=== PATIENT | male | born 1995 | race Caucasian/White ===

== ENCOUNTER 2016-12-03 16:37 | Emergency (ER) | payer OTHER ==
[~2016-12-03] VITALS: Ht 188 cm; Wt 70.5 kg
[~2016-12-03 16:37] MED LIST: ATIVAN 0.50.5 MG/TAB PO; IMURAN 50MG TAB50 MG PO; LIALDA 1.2 GM1.2 GM PO; MILLIPRED5 MG PO; NORCO 325 MG-7.1 TAB PO; PREDNISONE 5MG5 MG PO; PREDNISONE10 MG PO; PRIL40 PO; SERTRALINE
[2016-12-03 16:39] VITALS: BP 129/84; TEMP 98.6
[2016-12-03] MEDS ORDERED: VISTARIL 2525 MG/CAP PO (17:56)
[2016-12-03 18:03] VITALS: PULSE 69
== END 2016-12-03 18:03 | disposition home or self-care (01) ==
LOC: COL.ER 16:37
DX: F41.9 Anxiety disorder, unspecified (principal)

== ENCOUNTER 2017-01-03 08:13 | Emergency (ER) | payer OTHER ==
[~2017-01-03] VITALS: Ht 188 cm; Wt 70.5 kg
[~2017-01-03 08:13] MED LIST changes: +VISTARIL 2525 MG/CAP PO
[2017-01-03 08:16] VITALS: BP 118/77; TEMP 97.3
[2017-01-03] MEDS ORDERED: LEXAPRO 10MG10 MG PO (08:18)
[2017-01-03 09:13] VITALS: PULSE 64
== END 2017-01-03 09:19 | disposition home or self-care (01) ==
LOC: COL.ER 08:13
DX: F41.9 Anxiety disorder, unspecified (principal)

== ENCOUNTER 2017-03-06 13:47 | Emergency (ER) | payer OTHER ==
[~2017-03-06] VITALS: Ht 188 cm; Wt 70.5 kg
[~2017-03-06 13:47] MED LIST changes: +LEXAPRO 10MG10 MG PO
[2017-03-06 13:49] VITALS: BP 131/89; PULSE 82; TEMP 98.5
[2017-03-06] MEDS ORDERED: AMOXICILLIN 50500 MG PO (14:23)
[2017-03-07] MEDS ORDERED: ZOFRAN 4MG T4 MG/TAB PO (23:23)
== END 2017-03-06 15:02 | disposition home or self-care (01) ==
LOC: COL.ER 13:47
DX: K08.89 Other specified disorders of teeth and supporting structures (principal)

== ENCOUNTER 2017-03-07 20:57 | Emergency (ER) | payer OTHER ==
[~2017-03-07] VITALS: Ht 188 cm; Wt 70.5 kg
[~2017-03-07 20:57] MED LIST changes: +AMOXICILLIN 50500 MG PO
[2017-03-07 21:06] VITALS: TEMP 97.6
[2017-03-07 22:07] LABS: BASO # 0.1 (0.0-0.2); BASO % 0.5 % (0.0-2.0); EOS # 0.2 (0.0-0.7); EOS % 2.3 % (0-4.0); GRAN # 6.4 (1.4-6.5); GRAN % 67.3 % (42.2-75.2); HEMATOCRIT 39.9 % (36.0-47.0); HEMOGLOBIN 13.8 g/dl (12.5-16.1); LYMPH % 20.6 % (20.0-51.0); MEAN CELL VOLUME 90 fl (80.0-95.0); MEAN CORPUSCULAR HEMOGLOBIN 31 pg (26.0-32.0); MEAN CORPUSCULAR HGB CONC 35 g/dl (33.0-37.0); MONO # 0.9 (0.1-0.6); MONO % 9.1 % (1.7-9.3); PLATELET COUNT 216 K/mm3 (130-400); RED BLOOD COUNT 4.43 M/mm3 (4.20-5.60); REDCELL DISTRIBUTION WIDTH-CV 12.9 % (11.5-14.5); WHITE BLOOD COUNT 9.6 K/mm3 (4.8-10.8)
[2017-03-07 22:19] LABS: ADJUSTED CALCIUM 8.9 mg/dL (8.4-10.2); ALANINE AMINOTRANSFERASE 30 U/L (21-72); ALBUMIN 4.1 gm/dL (3.5-5.0); ALKALINE PHOSPHATASE 92 U/L (50-136); ANION GAP 11 mmol/L (7-16); BILIRUBIN,TOTAL 0.6 mg/dL (0.0-1.0); BLOOD UREA NITROGEN 12 mg/dL (9-20); CARBON DIOXIDE 27 mmol/L (22-30); CHLORIDE 101 mmol/L (98-107); CREATININE, serum 0.92 mg/dL (0.66-1.25); GLUCOSE 87 mg/dL (74-106); LIPASE 57 U/L (23-300); POTASSIUM 3.8 mmol/L (3.4-5.0); SODIUM 139 mmol/L (137-145)
[2017-03-07 22:25] LABS: C-REACTIVE PROTEIN < 0.5 mg/dL (0.0-0.9)
[2017-03-07 22:33] LABS: ERYTHROCYTE SEDIMENTATION RATE 2 mm/hr (0-15)
[2017-03-07 23:03] LABS: PH 6 (5-8); SQUAMOUS EPITHELIAL None Seen /hpf; URINE APPEARANCE Clear; URINE BACTERIA None Seen /hpf; URINE BILIRUBIN Negative (NEGATIVE); URINE BLOOD Negative (NEGATIVE); URINE COLOR Yellow; URINE GLUCOSE Negative (NEGATIVE); URINE KETONE Trace (NEGATIVE); URINE RBC 0-2 /hpf; URINE UROBILINOGEN Negative (NEGATIVE); URINE WBC 0-2 /hpf
[2017-03-07] MEDS ORDERED: ZOFRAN 4MG T4 MG/TAB PO (23:23)
[2017-03-07 23:39] VITALS: BP 120/78; PULSE 82
== END 2017-03-07 23:41 | disposition home or self-care (01) ==
LOC: COL.ER 20:57
PROVIDERS: Family Medicine
DX: R11.2 Nausea with vomiting, unspecified (principal); R10.84 Generalized abdominal pain; R63.0 Anorexia; R19.7 Diarrhea, unspecified; K50.90 Crohn's disease, unspecified, without complications
CPT/HCPCS: C9113; J2405; J7030

== ENCOUNTER 2017-09-13 14:00 | Outpatient (RCR) | payer OTHER ==
[2017-08-02 16:25] LABS: HEMATOCRIT 44.2 % (36.0-47.0); HEMOGLOBIN 14.8 g/dl (12.5-16.1); MEAN CELL VOLUME 92 fl (80.0-95.0); MEAN CORPUSCULAR HEMOGLOBIN 31 pg (26.0-32.0); MEAN CORPUSCULAR HGB CONC 34 g/dl (33.0-37.0); MEAN PLATELET VOLUME 9.4 fl (7.4-10.4); PLATELET COUNT 261 K/mm3 (130-400); REDCELL DISTRIBUTION WIDTH-CV 13.3 % (11.5-14.5)
[2017-08-02 16:35] LABS: ALBUMIN 5.1 gm/dL (3.5-5.0); BILIRUBIN,TOTAL 0.6 mg/dL (0.0-1.0); CREATININE, serum 0.87 mg/dL (0.66-1.25); POTASSIUM 4.1 mmol/L (3.4-5.0); TOTAL PROTEIN 8.5 gm/dL (6.4-8.2)
[2017-08-02 17:17] VITALS: BP 119/56; PULSE 82; TEMP 98.7
[2017-08-16 15:50] LABS: HEMATOCRIT 42.5 % (36.0-47.0); HEMOGLOBIN 14.4 g/dl (12.5-16.1); MEAN CELL VOLUME 92 fl (80.0-95.0); MEAN CORPUSCULAR HEMOGLOBIN 31 pg (26.0-32.0); MEAN CORPUSCULAR HGB CONC 34 g/dl (33.0-37.0); MEAN PLATELET VOLUME 9.9 fl (7.4-10.4); PLATELET COUNT 280 K/mm3 (130-400); RED BLOOD COUNT 4.63 M/mm3 (4.20-5.60); REDCELL DISTRIBUTION WIDTH-CV 13.2 % (11.5-14.5)
[2017-08-16 16:08] LABS: ALBUMIN 4.8 gm/dL (3.5-5.0); BILIRUBIN,TOTAL 0.7 mg/dL (0.0-1.0); CALCIUM 10.1 mg/dL (8.4-10.2); CREATININE, serum 0.89 mg/dL (0.66-1.25); POTASSIUM 4.2 mmol/L (3.4-5.0); TOTAL PROTEIN 7.8 gm/dL (6.4-8.2)
[2017-08-16 16:51] VITALS: BP 108/65; PULSE 68; TEMP 98.5
[~2017-09-13] VITALS: Ht 188 cm; Wt 78.0 kg
[~2017-09-13 14:00] MED LIST changes: +MILLIPRED DP5 MG PO; +PREDNISONE 5MG5 MG; +ZOFRAN 4MG T4 MG/TAB PO
[2017-09-13 14:27] LABS: HEMATOCRIT 43.6 % (36.0-47.0); HEMOGLOBIN 14.7 g/dl (12.5-16.1); MEAN CELL VOLUME 91 fl (80.0-95.0); MEAN CORPUSCULAR HEMOGLOBIN 31 pg (26.0-32.0); MEAN CORPUSCULAR HGB CONC 34 g/dl (33.0-37.0); MEAN PLATELET VOLUME 10.1 fl (7.4-10.4); PLATELET COUNT 256 K/mm3 (130-400); REDCELL DISTRIBUTION WIDTH-CV 12.9 % (11.5-14.5)
[2017-09-13 14:45] LABS: ALBUMIN 5.1 gm/dL (3.5-5.0); BILIRUBIN,TOTAL 0.7 mg/dL (0.0-1.0); CALCIUM 10.2 mg/dL (8.4-10.2); CREATININE, serum 0.92 mg/dL (0.66-1.25); POTASSIUM 4.1 mmol/L (3.4-5.0)
[2017-09-13 15:51] VITALS: BP 115/66; PULSE 72; TEMP 98.3
== END 2017-10-31 ==
LOC: EUO
PROVIDERS: Internal Medicine Gastroenterology; Physician Assistant
DX: K51.90 Ulcerative colitis, unspecified, without complications (principal)
CPT/HCPCS: J1200; J2920; J3380; J7050

== ENCOUNTER 2018-01-03 14:20 | Outpatient (CLI) | payer BC ==
[~2018-01-03] VITALS: Ht 188 cm; Wt 74.5 kg
[2018-01-03 15:00] LABS: HEMATOCRIT 42.8 % (42.0-52.0); HEMOGLOBIN 14.7 g/dl (13.5-18.0); MEAN CELL VOLUME 88 fl (80.0-100.0); MEAN CORPUSCULAR HEMOGLOBIN 30 pg (27.0-31.0); MEAN CORPUSCULAR HGB CONC 34 g/dl (33.0-37.0); MEAN PLATELET VOLUME 10.2 fl (7.4-10.4); PLATELET COUNT 245 K/mm3 (130-400); RED BLOOD COUNT 4.86 M/mm3 (4.20-5.60); REDCELL DISTRIBUTION WIDTH-CV 12.9 % (11.5-14.5)
[2018-01-03 15:08] LABS: ALBUMIN 4.9 gm/dL (3.5-5.0); BILIRUBIN,TOTAL 0.6 mg/dL (0.0-1.0); CALCIUM 9.7 mg/dL (8.4-10.2); CREATININE, serum 1.06 mg/dL (0.66-1.25); POTASSIUM 3.7 mmol/L (3.4-5.0); TOTAL PROTEIN 7.6 gm/dL (6.4-8.2)
[2018-01-03] MEDS ORDERED: ENTYVIO IV (15:22)
[2018-01-03 16:52] VITALS: BP 107/80; PULSE 82; TEMP 97.8
== END 2018-01-03 18:28 | disposition home or self-care (01) ==
LOC: EUO 14:20
PROVIDERS: Physician Assistant
DX: K51.90 Ulcerative colitis, unspecified, without complications (principal); Z79.899 Other long term (current) drug therapy
CPT/HCPCS: J1200; J2930; J3380; J7050

== ENCOUNTER 2018-02-28 15:21 | Outpatient (CLI) | payer BC ==
[~2018-02-28 15:21] MED LIST changes: +ENTYVIO IV
[2018-02-28 15:43] LABS: HEMATOCRIT 41.9 % (42.0-52.0); HEMOGLOBIN 14.5 g/dl (13.5-18.0); MEAN CELL VOLUME 89 fl (80.0-100.0); MEAN CORPUSCULAR HEMOGLOBIN 31 pg (27.0-31.0); MEAN CORPUSCULAR HGB CONC 35 g/dl (33.0-37.0); MEAN PLATELET VOLUME 10.9 fl (7.4-10.4); PLATELET COUNT 205 K/mm3 (130-400); RED BLOOD COUNT 4.69 M/mm3 (4.20-5.60); REDCELL DISTRIBUTION WIDTH-CV 13.2 % (11.5-14.5)
[2018-02-28 15:45] VITALS: BP 96/51; PULSE 88; TEMP 98.2
[2018-02-28 16:19] LABS: ALBUMIN 4.1 gm/dL (3.5-5.0); BILIRUBIN,TOTAL 0.4 mg/dL (0.0-1.0); CALCIUM 9.4 mg/dL (8.4-10.2); CREATININE, serum 1.06 mg/dL (0.66-1.25); POTASSIUM 4.1 mmol/L (3.4-5.0); TOTAL PROTEIN 7.3 gm/dL (6.4-8.2)
== END 2018-02-28 17:31 | disposition home or self-care (01) ==
LOC: EUO 15:21
PROVIDERS: Physician Assistant
DX: K51.90 Ulcerative colitis, unspecified, without complications (principal)
CPT/HCPCS: J1200; J2930; J3380; J7050

== ENCOUNTER 2018-04-25 15:07 | Outpatient (CLI) | payer BC ==
[~2018-04-25] VITALS: Ht 188 cm; Wt 69.5 kg
[2018-04-25 15:19] VITALS: BP 115/701; PULSE 73; TEMP 98.5
[2018-04-25 15:46] LABS: HEMATOCRIT 40.2 % (42.0-52.0); HEMOGLOBIN 13.7 g/dl (13.5-18.0); MEAN CELL VOLUME 89 fl (80.0-100.0); MEAN CORPUSCULAR HEMOGLOBIN 30 pg (27.0-31.0); MEAN CORPUSCULAR HGB CONC 34 g/dl (33.0-37.0); PLATELET COUNT 232 K/mm3 (130-400); RED BLOOD COUNT 4.54 M/mm3 (4.20-5.60)
[2018-04-25 15:56] LABS: ALBUMIN 4.3 gm/dL (3.5-5.0); BILIRUBIN,TOTAL 0.6 mg/dL (0.0-1.0); CALCIUM 9.4 mg/dL (8.4-10.2); CREATININE, serum 1.01 mg/dL (0.66-1.25); POTASSIUM 3.8 mmol/L (3.4-5.0); TOTAL PROTEIN 7.7 gm/dL (6.4-8.2)
== END 2018-04-25 17:17 | disposition home or self-care (01) ==
LOC: EUO 15:07
PROVIDERS: Physician Assistant
DX: K51.90 Ulcerative colitis, unspecified, without complications (principal)
CPT/HCPCS: J1200; J2930; J3380; J7050

== ENCOUNTER 2018-09-04 15:09 | Outpatient (CLI) | payer BC ==
[2018-09-04 15:38] LABS: HEMATOCRIT 41.4 % (42.0-52.0); HEMOGLOBIN 13.9 g/dl (13.5-18.0); MEAN CELL VOLUME 91 fl (80.0-100.0); MEAN CORPUSCULAR HEMOGLOBIN 31 pg (27.0-31.0); MEAN CORPUSCULAR HGB CONC 34 g/dl (33.0-37.0); MEAN PLATELET VOLUME 9.9 fl (7.4-10.4); PLATELET COUNT 226 K/mm3 (130-400); RED BLOOD COUNT 4.53 M/mm3 (4.20-5.60); REDCELL DISTRIBUTION WIDTH-CV 12.6 % (11.5-14.5)
[2018-09-04 15:59] LABS: ALBUMIN 4.3 gm/dL (3.5-5.0); BILIRUBIN,TOTAL 0.3 mg/dL (0.0-1.0); CREATININE, serum 0.96 mg/dL (0.66-1.25); POTASSIUM 4.1 mmol/L (3.4-5.0); TOTAL PROTEIN 7.2 gm/dL (6.4-8.2)
[2018-09-04 16:10] VITALS: BP 108/69; PULSE 72
[2018-09-04 16:28] VITALS: BP 107/67; PULSE 67
== END 2018-09-04 17:14 | disposition home or self-care (01) ==
LOC: EUO 15:09
PROVIDERS: Physician Assistant
DX: K51.90 Ulcerative colitis, unspecified, without complications (principal); Z79.899 Other long term (current) drug therapy
CPT/HCPCS: J1200; J2930; J3380; J7050

== ENCOUNTER 2018-11-01 14:30 | Outpatient (CLI) | payer BC ==
[~2018-11-01] VITALS: Ht 188 cm; Wt 68.7 kg
[2018-11-01 15:21] LABS: HEMATOCRIT 42.4 % (42.0-52.0); HEMOGLOBIN 14.6 g/dl (13.5-18.0); MEAN CELL VOLUME 91 fl (80.0-100.0); MEAN CORPUSCULAR HEMOGLOBIN 31 pg (27.0-31.0); MEAN CORPUSCULAR HGB CONC 34 g/dl (33.0-37.0); MEAN PLATELET VOLUME 10.3 fl (7.4-10.4); PLATELET COUNT 227 K/mm3 (130-400); RED BLOOD COUNT 4.68 M/mm3 (4.20-5.60)
[2018-11-01 15:33] LABS: ALBUMIN 4.6 gm/dL (3.5-5.0); BILIRUBIN,TOTAL 0.7 mg/dL (0.0-1.0); CALCIUM 9.6 mg/dL (8.4-10.2); CREATININE, serum 0.9 mg/dL (0.66-1.25); POTASSIUM 3.7 mmol/L (3.4-5.0); TOTAL PROTEIN 7.5 gm/dL (6.4-8.2)
[2018-11-01 16:35] VITALS: BP 115/57; PULSE 60; TEMP 97.8
== END 2018-11-01 17:12 | disposition home or self-care (01) ==
LOC: EUO 14:30
PROVIDERS: Internal Medicine Gastroenterology
DX: K51.90 Ulcerative colitis, unspecified, without complications (principal); Z79.899 Other long term (current) drug therapy
CPT/HCPCS: J1200; J2930; J3380; J7050

== ENCOUNTER 2018-12-27 14:18 | Outpatient (CLI) | payer BC ==
[~2018-12-27] VITALS: Ht 188 cm; Wt 68.7 kg
[2018-12-27 15:35] LABS: HEMOGLOBIN 13.5 g/dl (13.5-18.0); MEAN CELL VOLUME 91 fl (80.0-100.0); MEAN CORPUSCULAR HEMOGLOBIN 31 pg (27.0-31.0); MEAN CORPUSCULAR HGB CONC 34 g/dl (33.0-37.0); MEAN PLATELET VOLUME 10.1 fl (7.4-10.4); PLATELET COUNT 202 K/mm3 (130-400); RED BLOOD COUNT 4.41 M/mm3 (4.20-5.60); REDCELL DISTRIBUTION WIDTH-CV 12.5 % (11.5-14.5)
[2018-12-27 16:16] LABS: ALBUMIN 3.9 gm/dL (3.5-5.0); BILIRUBIN,TOTAL 0.4 mg/dL (0.0-1.0); CALCIUM 9.3 mg/dL (8.4-10.2); CREATININE, serum 0.97 mg/dL (0.66-1.25); POTASSIUM 4.2 mmol/L (3.4-5.0); TOTAL PROTEIN 6.8 gm/dL (6.4-8.2)
[2018-12-27 17:00] VITALS: BP 98/55; PULSE 71; TEMP 98.6
== END 2018-12-27 17:15 | disposition home or self-care (01) ==
LOC: EUO 14:18
PROVIDERS: Internal Medicine Gastroenterology
DX: K50.90 Crohn's disease, unspecified, without complications (principal); Z79.899 Other long term (current) drug therapy
CPT/HCPCS: J1200; J2930; J3380; J7050

== ENCOUNTER 2019-02-21 09:54 | Outpatient (CLI) | payer BC ==
[~2019-02-21] VITALS: Ht 188 cm; Wt 67.0 kg
[2019-02-21 10:15] VITALS: BP 122/79; PULSE 60
--- NOTE | 2019-02-21 10:15 | NUR ---
Pt felt faint after PIV attempt. Pt given juice and cold wash clothes.
[2019-02-21 10:20] VITALS: BP 108/69; PULSE 72
--- NOTE | 2019-02-21 10:20 | NUR ---
Pt recovered and VSS.
[2019-02-21] MEDS ORDERED: PAXIL 20MG20 MG PO (10:21)
[2019-02-21] MEDS ORDERED: INDERAL 10MG10 MG PO (10:22)
[2019-02-21 10:45] LABS: HEMATOCRIT 41.9 % (42.0-52.0); HEMOGLOBIN 13.9 g/dl (13.5-18.0); MEAN CELL VOLUME 92 fl (80.0-100.0); MEAN CORPUSCULAR HEMOGLOBIN 31 pg (27.0-31.0); MEAN CORPUSCULAR HGB CONC 33 g/dl (33.0-37.0); MEAN PLATELET VOLUME 9.7 fl (7.4-10.4); PLATELET COUNT 195 K/mm3 (130-400); RED BLOOD COUNT 4.54 M/mm3 (4.20-5.60); REDCELL DISTRIBUTION WIDTH-CV 13.3 % (11.5-14.5)
[2019-02-21 10:50] LABS: BILIRUBIN,TOTAL 0.5 mg/dL (0.0-1.0); CALCIUM 9.3 mg/dL (8.4-10.2); CREATININE, serum 0.9 (0.66-1.25); POTASSIUM 4.1 mmol/L (3.4-5.0)
[2019-02-21 11:28] VITALS: BP 114/74; PULSE 61; TEMP 98.6
[2019-02-21 11:40] VITALS: BP 103/64; PULSE 66
[2019-02-21 11:50] VITALS: BP 107/71; PULSE 63
[2019-02-21 12:00] VITALS: BP 110/70; PULSE 76
== END 2019-02-21 13:10 | disposition home or self-care (01) ==
LOC: EUO 09:54
PROVIDERS: Internal Medicine Gastroenterology
DX: K51.90 Ulcerative colitis, unspecified, without complications (principal); Z79.899 Other long term (current) drug therapy
CPT/HCPCS: J1200; J2920; J3380; J7050

== ENCOUNTER 2019-04-18 14:06 | Outpatient (CLI) | payer BC ==
[~2019-04-18] VITALS: Ht 188 cm; Wt 69.0 kg
[~2019-04-18 14:06] MED LIST changes: +INDERAL 10MG10 MG PO; +PAXIL 20MG20 MG PO
[2019-04-18 14:20] VITALS: BP 115/69; PULSE 77; TEMP 98
[2019-04-18 14:28] LABS: HEMATOCRIT 42.1 % (42.0-52.0); HEMOGLOBIN 14.1 g/dl (13.5-18.0); MEAN CELL VOLUME 91 fl (80.0-100.0); MEAN CORPUSCULAR HEMOGLOBIN 31 pg (27.0-31.0); MEAN CORPUSCULAR HGB CONC 34 g/dl (33.0-37.0); MEAN PLATELET VOLUME 9.8 fl (7.4-10.4); PLATELET COUNT 224 K/mm3 (130-400); RED BLOOD COUNT 4.62 M/mm3 (4.20-5.60); REDCELL DISTRIBUTION WIDTH-CV 13.2 % (11.5-14.5)
[2019-04-18] MEDS ORDERED: PROAIR HFA0.09 MG/AC IH (14:28)
[2019-04-18 14:39] LABS: CALCIUM 9.3 mg/dL (8.4-10.2); CREATININE, serum 0.86 (0.66-1.25); POTASSIUM 3.9 mmol/L (3.4-5.0)
[2019-04-18 15:50] VITALS: BP 122/64; PULSE 69
[2019-04-18 16:26] VITALS: BP 117/61; PULSE 83
== END 2019-04-18 17:16 | disposition home or self-care (01) ==
LOC: EUO 14:06
PROVIDERS: Internal Medicine Gastroenterology
DX: K51.90 Ulcerative colitis, unspecified, without complications (principal); Z79.899 Other long term (current) drug therapy
CPT/HCPCS: J1200; J2920; J3380; J7050

== ENCOUNTER 2019-06-25 11:01 | Outpatient (CLI) | payer BC, OTHER ==
[~2019-06-25] VITALS: Ht 188 cm; Wt 70.9 kg
[~2019-06-25 11:01] MED LIST changes: +PROAIR HFA0.09 MG/AC IH
[2019-06-25 11:36] LABS: HEMATOCRIT 41.8 % (42.0-52.0); MEAN CELL VOLUME 92 fl (80.0-100.0); MEAN CORPUSCULAR HEMOGLOBIN 31 pg (27.0-31.0); MEAN CORPUSCULAR HGB CONC 34 g/dl (33.0-37.0); MEAN PLATELET VOLUME 10.3 fl (7.4-10.4); PLATELET COUNT 189 K/mm3 (130-400); RED BLOOD COUNT 4.54 M/mm3 (4.20-5.60); REDCELL DISTRIBUTION WIDTH-CV 12.7 % (11.5-14.5)
[2019-06-25 11:41] VITALS: BP 103/49; PULSE 64; TEMP 98
[2019-06-25 11:47] LABS: ALBUMIN 4.3 gm/dL (3.5-5.0); BILIRUBIN,TOTAL 0.5 mg/dL (0.0-1.0); CALCIUM 9.3 mg/dL (8.4-10.2); CREATININE, serum 0.75 (0.66-1.25); POTASSIUM 3.9 mmol/L (3.4-5.0); TOTAL PROTEIN 7.3 gm/dL (6.4-8.2)
== END 2019-06-25 13:29 | disposition home or self-care (01) ==
LOC: EUO 11:01
PROVIDERS: Internal Medicine Gastroenterology
DX: K51.90 Ulcerative colitis, unspecified, without complications (principal); Z79.899 Other long term (current) drug therapy
CPT/HCPCS: J2920; J3380; J7050

== ENCOUNTER 2019-08-20 07:52 | Outpatient (CLI) | payer OTHER ==
[~2019-08-20] VITALS: Ht 188 cm; Wt 74.0 kg
[2019-08-20 08:15] VITALS: BP 142/71; PULSE 82
--- NOTE | 2019-08-20 08:15 | NUR ---
Pt became diaphoretic with momentarily unable to arouse after PIV start. Pt recovered in less than 1 min. VSS. Pt has history of vagal response with needle sticks.
[2019-08-20 08:20] VITALS: BP 110/52; PULSE 68; TEMP 97.5
[2019-08-20 08:20] LABS: HEMOGLOBIN 14.4 g/dl (13.5-18.0); MEAN CELL VOLUME 93 fl (80.0-100.0); MEAN CORPUSCULAR HEMOGLOBIN 31 pg (27.0-31.0); MEAN CORPUSCULAR HGB CONC 34 g/dl (33.0-37.0); MEAN PLATELET VOLUME 10.1 fl (7.4-10.4); PLATELET COUNT 198 K/mm3 (130-400); RED BLOOD COUNT 4.62 M/mm3 (4.20-5.60); REDCELL DISTRIBUTION WIDTH-CV 13.1 % (11.5-14.5)
--- NOTE | 2019-08-20 08:20 | NUR ---
Pt alert and O x 4, sitting up in chair drinking juice. Pt skin dry. Pt reports he is feeling better.
[2019-08-20 08:32] LABS: ALBUMIN 4.4 gm/dL (3.5-5.0); BILIRUBIN,TOTAL 0.4 mg/dL (0.0-1.0); CALCIUM 9.4 mg/dL (8.4-10.2); CREATININE, serum 0.83 (0.66-1.25); POTASSIUM 4.2 mmol/L (3.4-5.0); TOTAL PROTEIN 7.3 gm/dL (6.4-8.2)
[2019-08-20 09:15] VITALS: BP 126/62; PULSE 64
[2019-08-20 09:25] VITALS: BP 110/65; PULSE 72
[2019-08-20 09:35] VITALS: BP 108/62; PULSE 68
[2019-08-20 09:45] VITALS: BP 111/58; PULSE 82
== END 2019-08-20 10:10 | disposition home or self-care (01) ==
LOC: EUO → EDBD 07:52 → EUO 07:52
PROVIDERS: Internal Medicine Gastroenterology
DX: K51.90 Ulcerative colitis, unspecified, without complications (principal); Z79.899 Other long term (current) drug therapy
CPT/HCPCS: J2920; J3380; J7050

== ENCOUNTER 2019-10-20 13:56 | Outpatient (CLI) | payer OTHER ==
[~2019-10-20] VITALS: Ht 188 cm; Wt 77.1 kg
[2019-10-20 14:20] LABS: HEMATOCRIT 42.2 % (42.0-52.0); HEMOGLOBIN 14.2 g/dl (13.5-18.0); MEAN CELL VOLUME 92 fl (80.0-100.0); MEAN CORPUSCULAR HEMOGLOBIN 31 pg (27.0-31.0); MEAN CORPUSCULAR HGB CONC 34 g/dl (33.0-37.0); MEAN PLATELET VOLUME 9.7 fl (7.4-10.4); PLATELET COUNT 213 K/mm3 (130-400); RED BLOOD COUNT 4.58 M/mm3 (4.20-5.60); REDCELL DISTRIBUTION WIDTH-CV 12.9 % (11.5-14.5)
[2019-10-20 14:31] LABS: ALBUMIN 4.4 gm/dL (3.5-5.0); BILIRUBIN,TOTAL 0.3 mg/dL (0.0-1.0); CALCIUM 9.3 mg/dL (8.4-10.2); CREATININE, serum 0.91 (0.66-1.25); POTASSIUM 3.9 mmol/L (3.4-5.0); TOTAL PROTEIN 7.5 gm/dL (6.4-8.2)
[2019-10-20 15:20] VITALS: BP 111/62; PULSE 85; TEMP 98
[2019-10-20 16:16] VITALS: BP 105/55; PULSE 74; TEMP 97.5
== END 2019-10-20 16:17 | disposition home or self-care (01) ==
LOC: EUO 13:56
PROVIDERS: Internal Medicine Gastroenterology
DX: K51.90 Ulcerative colitis, unspecified, without complications (principal); Z79.899 Other long term (current) drug therapy
CPT/HCPCS: J1200; J2920; J3380; J7050

== ENCOUNTER 2019-10-27 07:03 | Emergency (ER) | payer OTHER ==
[~2019-10-27] VITALS: Ht 188 cm; Wt 70.5 kg
[2019-10-27 07:08] VITALS: TEMP 97.8
[2019-10-27 08:15] LABS: BASO % 0.3 % (0.0-2.0); EOS # 0.3 (0.0-0.7); EOS % 2.6 % (0-4.0); GRAN # 6.4 (1.4-6.5); GRAN % 60.8 % (42.2-75.2); LYMPH # 2.7 (1.2-3.4); LYMPH % 26.3 % (20.0-51.0); MEAN CELL VOLUME 93 fl (80.0-100.0); MEAN CORPUSCULAR HEMOGLOBIN 30 pg (27.0-31.0); MEAN CORPUSCULAR HGB CONC 33 g/dl (33.0-37.0); MEAN PLATELET VOLUME 9.7 fl (7.4-10.4); MONO % 9.5 % (1.7-9.3); PLATELET COUNT 212 K/mm3 (130-400); RED BLOOD COUNT 4.61 M/mm3 (4.20-5.60)
[2019-10-27 08:17] LABS: PROTHROMBIN TIME 11.5 SECONDS (9.7-12.8)
[2019-10-27 08:41] LABS: D-DIMER < 200.00 ng/mLDDu (200-230)
[2019-10-27 09:00] LABS: ALANINE AMINOTRANSFERASE 25 U/L (21-72); ALBUMIN 4.1 gm/dL (3.5-5.0); ALKALINE PHOSPHATASE 92 U/L (50-136); ANION GAP 8 mmol/L (7-16); AST,SGOT 25 U/L (15-37); BILIRUBIN,TOTAL 0.2 mg/dL (0.0-1.0); BLOOD UREA NITROGEN 19 mg/dL (9-20); CALCIUM 9.1 mg/dL (8.4-10.2); CARBON DIOXIDE 28 mmol/L (22-30); CHLORIDE 106 mmol/L (98-107); CREATININE, serum 0.85 (0.66-1.25); GLUCOSE 88 mg/dL (74-106); LIPASE 64 U/L (23-300); POTASSIUM 4.3 mmol/L (3.4-5.0); SODIUM 141 mmol/L (137-145); TOTAL PROTEIN 7.1 gm/dL (6.4-8.2)
[2019-10-27 09:06] LABS: C-REACTIVE PROTEIN < 0.5 mg/dL (0.0-0.9)
[2019-10-27 09:12] LABS: TROPONIN-I < 0.012 ng/mL (0.000-0.035)
[2019-10-27 09:46] VITALS: BP 128/88; PULSE 82
== END 2019-10-27 09:46 | disposition home or self-care (01) ==
LOC: COL.ER 07:03
PROVIDERS: Emergency Medicine
DX: R07.89 Other chest pain (principal); K50.90 Crohn's disease, unspecified, without complications
CPT/HCPCS: J2060; J3010; J7030

== ENCOUNTER 2019-12-19 15:30 | Outpatient (CLI) | payer OTHER ==
[~2019-12-19] VITALS: Ht 188 cm; Wt 77.1 kg
[2019-12-19 16:20] LABS: HEMATOCRIT 45.7 % (42.0-52.0); HEMOGLOBIN 15.4 g/dl (13.5-18.0); MEAN CELL VOLUME 91 fl (80.0-100.0); MEAN CORPUSCULAR HEMOGLOBIN 31 pg (27.0-31.0); MEAN CORPUSCULAR HGB CONC 34 g/dl (33.0-37.0); PLATELET COUNT 206 K/mm3 (130-400); RED BLOOD COUNT 5.02 M/mm3 (4.20-5.60)
[2019-12-19 16:25] LABS: ALBUMIN 4.8 gm/dL (3.5-5.0); BILIRUBIN,TOTAL 0.4 mg/dL (0.0-1.0); CALCIUM 9.8 mg/dL (8.4-10.2); CREATININE, serum 0.88 (0.66-1.25); POTASSIUM 3.7 mmol/L (3.4-5.0); TOTAL PROTEIN 8.1 gm/dL (6.4-8.2)
[2019-12-19 17:21] VITALS: BP 108/65; PULSE 71; TEMP 98.3
[2019-12-19 18:28] VITALS: BP 114/74; PULSE 71; TEMP 98.3
== END 2019-12-19 18:28 | disposition home or self-care (01) ==
LOC: EUO 15:30
PROVIDERS: Internal Medicine Gastroenterology
DX: K51.90 Ulcerative colitis, unspecified, without complications (principal); Z79.899 Other long term (current) drug therapy
CPT/HCPCS: J2920; J3380; J7050

== ENCOUNTER 2020-02-13 13:51 | Outpatient (RCR) | payer OTHER ==
[~2020-02-13] VITALS: Ht 188 cm; Wt 80.5 kg
[2020-02-13 14:42] LABS: HEMATOCRIT 41.9 % (42.0-52.0); MEAN CELL VOLUME 92 fl (80.0-100.0); MEAN CORPUSCULAR HEMOGLOBIN 31 pg (27.0-31.0); MEAN CORPUSCULAR HGB CONC 33 g/dl (33.0-37.0); MEAN PLATELET VOLUME 10.2 fl (7.4-10.4); PLATELET COUNT 241 K/mm3 (130-400); RED BLOOD COUNT 4.55 M/mm3 (4.20-5.60); REDCELL DISTRIBUTION WIDTH-CV 13.2 % (11.5-14.5)
[2020-02-13 14:43] LABS: ALBUMIN 4.4 gm/dL (3.5-5.0); BILIRUBIN,TOTAL 0.6 mg/dL (0.0-1.0); CALCIUM 9.4 mg/dL (8.4-10.2); CREATININE, serum 0.88 (0.66-1.25); POTASSIUM 3.8 mmol/L (3.4-5.0); TOTAL PROTEIN 7.8 gm/dL (6.4-8.2)
--- NOTE | 2020-02-13 15:11 | NUR ---
Pt medication did not arrive.Per pt he is going to call to see when it will be shipped.
== END 2020-05-13 | disposition still patient (30) ==
LOC: EUO → EDSTATUS 14:00 → EUO 15:30
PROVIDERS: Internal Medicine Gastroenterology
DX: K51.90 Ulcerative colitis, unspecified, without complications (principal); Z79.899 Other long term (current) drug therapy
CPT/HCPCS: J3380

== ENCOUNTER 2020-02-23 15:02 | Outpatient (CLI) | payer OTHER ==
[~2020-02-23] VITALS: Ht 188 cm; Wt 79.9 kg
[2020-02-23 15:37] LABS: HEMATOCRIT 41.3 % (42.0-52.0); HEMOGLOBIN 13.8 g/dl (13.5-18.0); MEAN CELL VOLUME 92 fl (80.0-100.0); MEAN CORPUSCULAR HEMOGLOBIN 31 pg (27.0-31.0); MEAN CORPUSCULAR HGB CONC 33 g/dl (33.0-37.0); MEAN PLATELET VOLUME 10.3 fl (7.4-10.4); PLATELET COUNT 208 K/mm3 (130-400); RED BLOOD COUNT 4.49 M/mm3 (4.20-5.60)
[2020-02-23 15:47] LABS: ALBUMIN 4.5 gm/dL (3.5-5.0); BILIRUBIN,TOTAL 0.5 mg/dL (0.0-1.0); CALCIUM 9.5 mg/dL (8.4-10.2); CREATININE, serum 0.9 (0.66-1.25); TOTAL PROTEIN 7.6 gm/dL (6.4-8.2)
[2020-02-23 16:19] VITALS: BP 116/88; PULSE 82; TEMP 98.4
[2020-02-23 16:29] VITALS: BP 111/73; PULSE 62
[2020-02-23 16:39] VITALS: BP 112/75; PULSE 73
== END 2020-02-23 16:58 | disposition home or self-care (01) ==
LOC: EUO 15:02
PROVIDERS: Internal Medicine Gastroenterology
DX: K51.90 Ulcerative colitis, unspecified, without complications (principal); Z79.899 Other long term (current) drug therapy
CPT/HCPCS: J2920; J3380; J7050

== ENCOUNTER 2020-04-19 14:28 | Outpatient (CLI) | payer OTHER ==
[~2020-04-19] VITALS: Ht 188 cm; Wt 77.4 kg
[2020-04-19 14:54] LABS: HEMATOCRIT 42.8 % (42.0-52.0); MEAN CELL VOLUME 93 fl (80.0-100.0); MEAN CORPUSCULAR HEMOGLOBIN 30 pg (27.0-31.0); MEAN CORPUSCULAR HGB CONC 33 g/dl (33.0-37.0); MEAN PLATELET VOLUME 10.2 fl (7.4-10.4); PLATELET COUNT 222 K/mm3 (130-400); REDCELL DISTRIBUTION WIDTH-CV 12.8 % (11.5-14.5)
[2020-04-19 15:02] LABS: ALBUMIN 4.3 gm/dL (3.5-5.0); BILIRUBIN,TOTAL 0.5 mg/dL (0.0-1.0); CALCIUM 9.5 mg/dL (8.4-10.2); CREATININE, serum 1.08 (0.66-1.25); POTASSIUM 3.9 mmol/L (3.4-5.0); TOTAL PROTEIN 7.6 gm/dL (6.4-8.2)
[2020-04-19 15:43] VITALS: BP 101/59; PULSE 63; TEMP 97.3
[2020-04-19 16:20] VITALS: BP 107/60; PULSE 67; TEMP 97.3
== END 2020-04-19 16:24 | disposition home or self-care (01) ==
LOC: EUO 14:28
PROVIDERS: Internal Medicine Gastroenterology
DX: K51.90 Ulcerative colitis, unspecified, without complications (principal); Z79.899 Other long term (current) drug therapy
CPT/HCPCS: J2920; J3380; J7050

== ENCOUNTER 2020-06-15 12:44 | Outpatient (CLI) | payer OTHER ==
[~2020-06-15] VITALS: Ht 188 cm; Wt 76.8 kg
[2020-06-15 13:00] VITALS: BP 122/78; PULSE 82; TEMP 97.8
[2020-06-15 13:06] LABS: HEMOGLOBIN 14.1 g/dl (13.5-18.0); MEAN CELL VOLUME 91 fl (80.0-100.0); MEAN CORPUSCULAR HEMOGLOBIN 30 pg (27.0-31.0); MEAN CORPUSCULAR HGB CONC 34 g/dl (33.0-37.0); PLATELET COUNT 214 K/mm3 (130-400); RED BLOOD COUNT 4.64 M/mm3 (4.20-5.60); REDCELL DISTRIBUTION WIDTH-CV 13.1 % (11.5-14.5)
[2020-06-15 13:31] LABS: ALBUMIN 4.4 gm/dL (3.5-5.0); BILIRUBIN,TOTAL 0.4 mg/dL (0.0-1.0); CALCIUM 9.4 mg/dL (8.4-10.2); CREATININE, serum 0.88 (0.66-1.25); POTASSIUM 3.9 mmol/L (3.4-5.0); TOTAL PROTEIN 7.5 gm/dL (6.4-8.2)
[2020-06-15 14:30] VITALS: BP 101/55; PULSE 58
[2020-06-15 14:40] VITALS: BP 94/55; PULSE 57
[2020-06-15 14:50] VITALS: BP 92/64; PULSE 62
[2020-06-15 15:00] VITALS: BP 116/60; PULSE 62
--- NOTE | 2020-06-15 15:10 | NUR ---
Pt ambulates from dept with steady gait. INT DC'd with catheter intact, bleeding controlled. Appt card with next appt given to pt.
== END 2020-06-15 15:10 | disposition home or self-care (01) ==
LOC: EUO 12:44
PROVIDERS: Internal Medicine Gastroenterology
DX: K51.90 Ulcerative colitis, unspecified, without complications (principal)
CPT/HCPCS: J2920; J3380; J7050

== ENCOUNTER 2020-08-10 12:42 | Outpatient (CLI) | payer OTHER ==
[~2020-08-10] VITALS: Ht 188 cm; Wt 76.2 kg
[2020-08-10 13:30] LABS: HEMATOCRIT 45.6 % (42.0-52.0); HEMOGLOBIN 15.3 g/dl (13.5-18.0); MEAN CELL VOLUME 91 fl (80.0-100.0); MEAN CORPUSCULAR HEMOGLOBIN 30 pg (27.0-31.0); MEAN CORPUSCULAR HGB CONC 34 g/dl (33.0-37.0); MEAN PLATELET VOLUME 10.2 fl (7.4-10.4); PLATELET COUNT 242 K/mm3 (130-400); RED BLOOD COUNT 5.03 M/mm3 (4.20-5.60); REDCELL DISTRIBUTION WIDTH-CV 13.2 % (11.5-14.5)
[2020-08-10 14:10] VITALS: BP 100/56; PULSE 72; TEMP 98.2
[2020-08-10 14:49] VITALS: BP 98/52; PULSE 74; TEMP 98.2
== END 2020-08-10 14:53 | disposition home or self-care (01) ==
LOC: EUO 12:42
PROVIDERS: Internal Medicine Gastroenterology
DX: K51.90 Ulcerative colitis, unspecified, without complications (principal); Z79.899 Other long term (current) drug therapy
CPT/HCPCS: J2920; J3380; J7050

== ENCOUNTER 2020-10-05 12:41 | Outpatient (CLI) | payer OTHER ==
[~2020-10-05] VITALS: Ht 188 cm; Wt 76.8 kg
[2020-10-05 13:07] LABS: HEMATOCRIT 46.7 % (42.0-52.0); HEMOGLOBIN 15.8 g/dl (13.5-18.0); MEAN CELL VOLUME 89 fl (80.0-100.0); MEAN CORPUSCULAR HEMOGLOBIN 30 pg (27.0-31.0); MEAN CORPUSCULAR HGB CONC 34 g/dl (33.0-37.0); MEAN PLATELET VOLUME 9.7 fl (7.4-10.4); PLATELET COUNT 262 K/mm3 (130-400); RED BLOOD COUNT 5.27 M/mm3 (4.20-5.60); REDCELL DISTRIBUTION WIDTH-CV 12.9 % (11.5-14.5)
[2020-10-05 13:17] LABS: ALBUMIN 4.9 gm/dL (3.5-5.0); BILIRUBIN,TOTAL 0.6 mg/dL (0.0-1.0); CREATININE, serum 1.03 (0.66-1.25); POTASSIUM 3.6 mmol/L (3.4-5.0); TOTAL PROTEIN 8.4 gm/dL (6.4-8.2)
[2020-10-05 13:51] VITALS: BP 111/61; PULSE 82; TEMP 98.4
[2020-10-05 14:20] VITALS: BP 107/68; PULSE 82; TEMP 98.4
[2020-10-05 14:30] VITALS: BP 104/65; PULSE 84
[2020-10-05 14:40] VITALS: BP 108/70; PULSE 86; TEMP 98.6
== END 2020-10-05 15:47 | disposition home or self-care (01) ==
LOC: EUO 12:41
PROVIDERS: Internal Medicine Gastroenterology
DX: K51.90 Ulcerative colitis, unspecified, without complications (principal); Z79.899 Other long term (current) drug therapy
CPT/HCPCS: J2920; J3380; J7050

== ENCOUNTER 2020-12-01 07:48 | Outpatient (CLI) | payer OTHER ==
[~2020-12-01] VITALS: Ht 188 cm; Wt 81.1 kg
[2020-12-01 08:30] LABS: ALBUMIN 4.6 gm/dL (3.5-5.0); BILIRUBIN,TOTAL 0.5 mg/dL (0.0-1.0); CALCIUM 9.7 mg/dL (8.4-10.2); CREATININE, serum 0.98 (0.66-1.25); TOTAL PROTEIN 7.8 gm/dL (6.4-8.2)
[2020-12-01 08:32] LABS: HEMATOCRIT 44.9 % (42.0-52.0); HEMOGLOBIN 15.1 g/dl (13.5-18.0); MEAN CELL VOLUME 90 fl (80.0-100.0); MEAN CORPUSCULAR HEMOGLOBIN 30 pg (27.0-31.0); MEAN CORPUSCULAR HGB CONC 34 g/dl (33.0-37.0); MEAN PLATELET VOLUME 9.7 fl (7.4-10.4); PLATELET COUNT 232 K/mm3 (130-400); RED BLOOD COUNT 4.98 M/mm3 (4.20-5.60); REDCELL DISTRIBUTION WIDTH-CV 12.6 % (11.5-14.5)
[2020-12-01 08:35] VITALS: BP 113/75; PULSE 80; TEMP 98.8
[2020-12-01 09:40] VITALS: BP 110/73; PULSE 75
[2020-12-01 09:55] VITALS: BP 113/69; PULSE 78
[2020-12-01 10:10] VITALS: BP 118/76; PULSE 80
--- NOTE | 2020-12-01 10:10 | NUR ---
Pt tolerated infusion with no problem. IV dc'd with cath intact, dressing applied. Appointment made for 8 weeks from today at 1 pm, appt card given. Pt made aware of need for documentation of updated PA, I did call and leave message for Antoin[facility] at [facility] requesting updated PA.
== END 2020-12-01 10:36 | disposition home or self-care (01) ==
LOC: EUO 07:48
PROVIDERS: Internal Medicine Gastroenterology
DX: K51.90 Ulcerative colitis, unspecified, without complications (principal); Z79.899 Other long term (current) drug therapy
CPT/HCPCS: J2920; J7050

== ENCOUNTER 2021-03-30 14:00 | Outpatient (RCR) | payer OTHER ==
[~2021-03-30] VITALS: Ht 188 cm; Wt 79.8 kg
[2021-03-30 14:08] LABS: HEMATOCRIT 41.5 % (42.0-52.0); HEMOGLOBIN 14.1 g/dl (13.5-18.0); MEAN CELL VOLUME 90 fl (80.0-100.0); MEAN CORPUSCULAR HEMOGLOBIN 31 pg (27.0-31.0); MEAN CORPUSCULAR HGB CONC 34 g/dl (33.0-37.0); MEAN PLATELET VOLUME 10.1 fl (7.4-10.4); PLATELET COUNT 238 K/mm3 (130-400); RED BLOOD COUNT 4.61 M/mm3 (4.20-5.60)
[2021-03-30 14:21] LABS: ALBUMIN 4.3 gm/dL (3.5-5.0); BILIRUBIN,TOTAL 0.3 mg/dL (0.0-1.0); CALCIUM 8.8 mg/dL (8.4-10.2); CREATININE, serum 0.87 (0.66-1.25); POTASSIUM 3.7 mmol/L (3.4-5.0); TOTAL PROTEIN 7.3 gm/dL (6.4-8.2)
[2021-03-30 15:45] VITALS: BP 125/82; PULSE 83; TEMP 99.2
== END 2021-03-30 16:13 | disposition home or self-care (01) ==
LOC: EUO 14:00
PROVIDERS: Internal Medicine Gastroenterology
DX: K50.90 Crohn's disease, unspecified, without complications (principal); Z79.899 Other long term (current) drug therapy
CPT/HCPCS: J1200; J2920; J3380; J7050

== ENCOUNTER 2021-05-26 14:07 | Outpatient (CLI) | payer OTHER ==
[~2021-05-26] VITALS: Ht 188 cm; Wt 77.7 kg
[2021-05-26 14:38] LABS: HEMOGLOBIN 14.3 g/dl (13.5-18.0); MEAN CELL VOLUME 90 fl (80.0-100.0); MEAN CORPUSCULAR HEMOGLOBIN 30 pg (27.0-31.0); MEAN CORPUSCULAR HGB CONC 33 g/dl (33.0-37.0); PLATELET COUNT 258 K/mm3 (130-400); RED BLOOD COUNT 4.77 M/mm3 (4.20-5.60); REDCELL DISTRIBUTION WIDTH-CV 12.7 % (11.5-14.5)
[2021-05-26 14:49] LABS: ALBUMIN 4.3 gm/dL (3.5-5.0); BILIRUBIN,TOTAL 0.3 mg/dL (0.0-1.0); POTASSIUM 4.1 mmol/L (3.4-5.0); TOTAL PROTEIN 7.7 gm/dL (6.4-8.2)
[2021-05-26 15:09] VITALS: BP 99/55; PULSE 76; TEMP 98.7
== END 2021-05-26 16:31 ==
LOC: EUO 14:07
PROVIDERS: Internal Medicine Gastroenterology
DX: K51.90 Ulcerative colitis, unspecified, without complications (principal); Z79.899 Other long term (current) drug therapy
CPT/HCPCS: J2920; J3380; J7050

== ENCOUNTER 2021-07-25 13:44 | Outpatient (CLI) | payer OTHER ==
[~2021-07-25] VITALS: Ht 188 cm; Wt 76.6 kg
[2021-07-25 14:23] LABS: BASO # 0.1 (0.0-0.2); BASO % 0.8 % (0.0-2.0); EOS % 11.2 % (0-4.0); GRAN # 4.2 (1.4-6.5); GRAN % 49.2 % (42.2-75.2); HEMATOCRIT 41.9 % (42.0-52.0); HEMOGLOBIN 14.1 g/dl (13.5-18.0); LYMPH # 2.5 (1.2-3.4); LYMPH % 29.9 % (20.0-51.0); MEAN CELL VOLUME 90 fl (80.0-100.0); MEAN CORPUSCULAR HEMOGLOBIN 30 pg (27.0-31.0); MEAN CORPUSCULAR HGB CONC 34 g/dl (33.0-37.0); MEAN PLATELET VOLUME 9.6 fl (7.4-10.4); MONO # 0.8 (0.1-0.6); MONO % 8.8 % (1.7-9.3); PLATELET COUNT 230 K/mm3 (130-400); RED BLOOD COUNT 4.64 M/mm3 (4.20-5.60); REDCELL DISTRIBUTION WIDTH-CV 13.1 % (11.5-14.5)
[2021-07-25 14:38] VITALS: BP 111/65; PULSE 74; TEMP 98.6
[2021-07-25 14:53] LABS: ALBUMIN 4.1 gm/dL (3.5-5.0); BILIRUBIN,TOTAL 0.3 mg/dL (0.2-1.2); CALCIUM 9.3 mg/dL (8.4-10.2); CREATININE, serum 1.05 mg/dL (0.72-1.25); POTASSIUM 3.9 mmol/L (3.5-4.5); TOTAL PROTEIN 7.4 gm/dL (6.2-8.1)
== END 2021-07-25 16:00 | disposition home or self-care (01) ==
LOC: EUO 13:44
PROVIDERS: Internal Medicine Gastroenterology
DX: Z79.899 Other long term (current) drug therapy (principal)
CPT/HCPCS: J2920; J3380; J7050

== ENCOUNTER 2021-09-19 12:29 | Outpatient (CLI) | payer OTHER ==
[~2021-09-19] VITALS: Ht 188 cm; Wt 76.2 kg
[2021-09-19 12:52] LABS: HEMATOCRIT 44.4 % (42.0-52.0); HEMOGLOBIN 14.4 g/dl (13.5-18.0); MEAN CELL VOLUME 93 fl (80.0-100.0); MEAN CORPUSCULAR HEMOGLOBIN 30 pg (27.0-31.0); MEAN CORPUSCULAR HGB CONC 32 g/dl (33.0-37.0); MEAN PLATELET VOLUME 9.7 fl (7.4-10.4); PLATELET COUNT 318 K/mm3 (130-400); RED BLOOD COUNT 4.78 M/mm3 (4.20-5.60); REDCELL DISTRIBUTION WIDTH-CV 13.5 % (11.5-14.5)
[2021-09-19 13:12] LABS: ALBUMIN 4.1 gm/dL (3.5-5.0); BILIRUBIN,TOTAL 0.4 mg/dL (0.2-1.2); CALCIUM 9.8 mg/dL (8.4-10.2); CREATININE, serum 0.99 mg/dL (0.72-1.25); TOTAL PROTEIN 7.8 gm/dL (6.2-8.1)
[2021-09-19 13:47] LABS: BAND 3 % (0-10); LYMPHOCYTE 8 % (20.0-51.0); NEUTROPHILS 89 % (42.0-75.2); PLATELET ESTIMATE NORMAL (NORMAL)
[2021-09-19 14:09] VITALS: BP 104/70; PULSE 79; TEMP 98
== END 2021-09-19 14:53 ==
LOC: EUO 12:29
PROVIDERS: Internal Medicine Gastroenterology
DX: Z79.899 Other long term (current) drug therapy (principal)
CPT/HCPCS: J1200; J2920; J3380; J7050

== ENCOUNTER 2021-11-17 13:47 | Outpatient (CLI) | payer OTHER ==
[~2021-11-17] VITALS: Ht 188 cm; Wt 72.2 kg
[2021-11-17 14:29] LABS: BASO % 0.1 % (0.0-2.0); EOS % 0.1 % (0.0-4.0); GRAN # 10.5 K/mm3 (1.4-6.5); HEMATOCRIT 42.4 % (42.0-52.0); HEMOGLOBIN 14.3 g/dl (13.5-18.0); LYMPH # 1.7 K/mm3 (1.2-3.4); LYMPH % 13.2 % (20.0-51.0); MEAN CELL VOLUME 90 fl (80.0-100.0); MEAN CORPUSCULAR HEMOGLOBIN 30 pg (27-31); MEAN CORPUSCULAR HGB CONC 34 g/dl (33.0-37.0); MEAN PLATELET VOLUME 9.5 fl (7.4-10.4); MONO # 0.5 K/mm3 (0.1-0.6); MONO % 4.2 % (1.7-9.3); PLATELET COUNT 276 K/mm3 (130-400); RED BLOOD COUNT 4.71 M/mm3 (4.20-5.60); REDCELL DISTRIBUTION WIDTH-CV 13.1 % (11.5-14.5)
[2021-11-17 14:53] LABS: BILIRUBIN,TOTAL 0.3 mg/dL (0.2-1.2); CALCIUM 9.1 mg/dL (8.4-10.2); CREATININE, serum 0.84 mg/dL (0.72-1.25); POTASSIUM 3.7 mmol/L (3.5-4.5); TOTAL PROTEIN 7.3 gm/dL (6.2-8.1)
[2021-11-17 15:00] VITALS: BP 107/71; PULSE 80; TEMP 99
[2021-11-17] MEDS ORDERED: PREDNISONE 5MG5 MG PO (15:20)
== END 2021-11-17 16:05 | disposition home or self-care (01) ==
LOC: EUO 13:47
PROVIDERS: Internal Medicine Gastroenterology
DX: K50.919 Crohn's disease, unspecified, with unspecified complications (principal)
CPT/HCPCS: J3380; J7050

== ENCOUNTER 2022-01-12 12:22 | Outpatient (CLI) | payer OTHER ==
[2022-01-12 12:51] LABS: BASO % 0.2 % (0.0-2.0); EOS # 0.1 K/mm3 (0.0-0.7); EOS % 0.7 % (0.0-4.0); GRAN # 14.9 K/mm3 (1.4-6.5); GRAN % 77.1 % (42.2-75.2); HEMATOCRIT 43.8 % (42.0-52.0); HEMOGLOBIN 14.9 g/dl (13.5-18.0); LYMPH # 3.1 K/mm3 (1.2-3.4); LYMPH % 15.9 % (20.0-51.0); MEAN CELL VOLUME 90 fl (80.0-100.0); MEAN CORPUSCULAR HEMOGLOBIN 31 pg (27-31); MEAN CORPUSCULAR HGB CONC 34 g/dl (33.0-37.0); MEAN PLATELET VOLUME 9.2 fl (7.4-10.4); MONO # 1.1 K/mm3 (0.1-0.6); MONO % 5.6 % (1.7-9.3); PLATELET COUNT 350 K/mm3 (130-400); RED BLOOD COUNT 4.86 M/mm3 (4.20-5.60); REDCELL DISTRIBUTION WIDTH-CV 13.3 % (11.5-14.5)
[2022-01-12 13:08] LABS: ALBUMIN 3.8 gm/dL (3.5-5.0); BILIRUBIN,TOTAL 0.4 mg/dL (0.2-1.2); CALCIUM 8.9 mg/dL (8.4-10.2); CREATININE, serum 0.99 mg/dL (0.72-1.25); POTASSIUM 3.4 mmol/L (3.5-4.5); TOTAL PROTEIN 7.7 gm/dL (6.2-8.1)
[2022-01-12 13:14] VITALS: BP 118/57; PULSE 84; TEMP 98.5
[2022-01-12] MEDS ORDERED: IMURAN 50MG TAB50 MG PO (14:33)
--- NOTE | 2022-01-12 15:11 | NUR ---
Pt tolerated infusion without issue. IV DC'd with catheter intact. He ambulates from dept with steady gait. He is aware that updated PA will be needed prior to next infusion. Message was left at GI office requesting PA. Pt will also follow up on this.
== END 2022-01-12 15:13 | disposition home or self-care (01) ==
LOC: EUO 12:22
PROVIDERS: Internal Medicine Gastroenterology
DX: K50.919 Crohn's disease, unspecified, with unspecified complications (principal); K51.919 Ulcerative colitis, unspecified with unspecified complications
CPT/HCPCS: J3380; J7050